=== PATIENT | male | born 1950 | race Asian ===

== ENCOUNTER 2017-08-07 08:09 | Inpatient (IN) | payer OTHER ==
[~2017-08-07] VITALS: Ht 170.2 cm; Wt 69.9 kg
[2017-08-07 08:14] VITALS: BP 129/76
[2017-08-07] MEDS ORDERED: QUET200T PO (08:34)
[2017-08-07] MEDS ORDERED: CLON0.5T PO (08:35)
[2017-08-07] MEDS ORDERED: DILT-135 (08:36)
[2017-08-07] MEDS ORDERED: GABA300C PO (08:37)
[2017-08-07] MEDS ORDERED: SIMV20TA6 PO (08:38)
[2017-08-07] MEDS ORDERED: LURA40TA PO (08:39)
[2017-08-07] MEDS ORDERED: DIPH50CA8 PO (08:42)
[2017-08-07] MEDS ORDERED: METF500T PO (08:43)
[2017-08-07] MEDS ORDERED: ASPIRIN 325 MG TAB PO ONE (08:50)
[2017-08-07 09:01] LABS: ANION GAP 11.4 (8-16); CARBON DIOXIDE 29.7 mmol/L (21-32); POTASSIUM 4.1 mmol/L (3.5-5.1)
[2017-08-07 09:05] LABS: PROTHROMBIN TIME 10.4 secs (10.8-13.4)
[2017-08-07 09:09] LABS: ALBUMIN 3.8 g/dL (3.4-5.0); TOTAL BILIRUBIN 0.3 mg/dL (0.0-1.0)
[2017-08-07] MEDS ORDERED: NACL 0.9% 500 ML IV ONE (09:10)
[2017-08-07] MEDS ORDERED: NACL 0.9% 1,000 ML IV SCH (09:12)
[2017-08-07] MEDS ORDERED: ONDANSETRON 4 MG/2 ML VIAL IVP PRN (09:15)
[2017-08-07] MEDS ORDERED: ACETAMINOPHEN 325 MG TAB PO PRN (09:15)
[2017-08-07] MEDS ORDERED: HYDROcodone/APAP 7.5/325 MG 1 TAB PO PRN (09:15)
[2017-08-07 09:16] LABS: BASOPHILS # (AUTO) 0.4 K/uL (0.00-0.22); BASOPHILS % (AUTO) 4.9 % (0.0-2.0); HEMATOCRIT 44.3 % (36-52); HEMOGLOBIN 14.5 g/dL (12.0-18.0); LYMPHOCYTES # (AUTO) 1.7 K/uL (2.0-11.5); LYMPHOCYTES % (AUTO) 20.8 % (20.5-51.1); MEAN CORPUSCULAR HEMOGLOBIN 31 pg (27-31); MEAN CORPUSCULAR HGB CONC 33 g/dL (33-37); MONOCYTES # (AUTO) 0.6 K/uL (0.8-1.0); MONOCYTES % (AUTO) 6.9 % (1.7-9.3); NEUTROPHILS # (AUTO) 4.4 K/uL (1.8-7.7); NEUTROPHILS % (AUTO) 55.4 % (42.2-75.2); PLATELET COUNT (AUTO) 209 K/uL (140-450); RED BLOOD CELL COUNT(AUTO) 4.72 MIL/uL (4.20-6.10); RED CELL DISTRIBUTION WIDTH 12.6 % (11.6-13.7); WHITE BLOOD COUNT (AUTO) 8.1 K/uL (4.8-10.8)
[2017-08-07 09:40] VITALS: BP 146/72
[2017-08-07 09:44] LABS: CHOL/HDL RATIO 4.2 (1-4.5); MAGNESIUM 2.1 mg/dL (1.8-2.4); PHOSPHORUS 3.6 mg/dL (2.5-4.9)
[2017-08-07] MEDS ORDERED: MECLIZINE 25 MG TAB PO PRN (10:25)
[2017-08-07 11:10] LABS: FREE T4 (FREE THYROXINE) 1.04 ng/dL (0.76-1.46); THYROID STIMULATING HORMONE 2.02 uIU/mL (0.34-3.74)
[2017-08-07 12:00] VITALS: BP 147/81
[2017-08-07 12:03] LABS: APPEARANCE,URINE CLEAR (CLEAR); BILIRUBIN,URINE NEGATIVE (NEGATIVE); BLOOD, URINE NEGATIVE (NEGATIVE); COLOR,URINE YELLOW (YELLOW); LEUKOCYTE ESTERASE ,URINE NEGATIVE (NEGATIVE); NITRITE, URINE NEGATIVE (NEGATIVE); UGLUCOSE NEGATIVE (NEGATIVE)
[2017-08-07] MEDS ORDERED: INSULIN LISPRO SLIDING SCALE 100 UNITS/ML VIAL SUBQ PRN (15:20)
[2017-08-07] MEDS ORDERED: DEXTROSE 50% 50 ML SYR IVP PRN (15:20)
[2017-08-07] MEDS ORDERED: DEXT 5% / NACL 0.45% 1,000 ML IV SCH (15:20)
[2017-08-07] MEDS ORDERED: DILT120C95 PO (15:28)
[2017-08-07] MEDS ORDERED: QUET100T44 PO (15:28)
[2017-08-07] MEDS ORDERED: DOCU-299 PO (15:28)
[2017-08-07] MEDS ORDERED: D50SYR IVP (15:28)
[2017-08-07] MEDS ORDERED: ONDA2SOL45 IVP (15:28)
[2017-08-07] MEDS ORDERED: GLU500 PO (15:28)
[2017-08-07] MEDS ORDERED: ACET-1182 PO (15:28)
[2017-08-07] MEDS ORDERED: ACET-9529 PO (15:28)
[2017-08-07] MEDS ORDERED: GABA-638 PO (15:28)
[2017-08-07] MEDS ORDERED: BEN50 PO (15:28)
[2017-08-07] MEDS ORDERED: HUMSLIDE SUBQ (15:28)
[2017-08-07] MEDS ORDERED: ATOR20TA40 PO (15:28)
[2017-08-07] MEDS ORDERED: CLON0.5T4 PO (15:28)
[2017-08-07] MEDS ORDERED: LURASIDONE HCL PO (15:28)
[2017-08-07] MEDS ORDERED: MECL-272 PO (15:28)
[2017-08-07 16:00] VITALS: BP 142/72
[2017-08-07] MEDS ORDERED: GABAPENTIN 300 MG CAP PO SCH (17:00)
[2017-08-07] MEDS ORDERED: clonazePAM 0.5 MG TAB PO SCH (21:00)
[2017-08-07] MEDS ORDERED: QUEtiapine FUMARATE 100 MG TAB PO SCH (21:00)
[2017-08-07] MEDS ORDERED: SIMVASTATIN 20 MG TAB PO SCH (21:00)
[2017-08-07] MEDS ORDERED: diphenhydrAMINE 50 MG CAP PO SCH (21:00)
[2017-08-07] MEDS ORDERED: DOCUSATE SODIUM 100 MG GELCAP PO SCH (21:00)
[2017-08-07] MEDS ORDERED: NON-FORMULARY ITEM (Lurasidone HCl (Latuda) 20 MG) PO SCH (21:00)
[2017-08-08] MEDS ORDERED: DILTIAZEM 120 MG CAPER PO SCH (09:00)
[2017-08-08] MEDS ORDERED: metFORMIN 500 MG TAB PO SCH (09:00)
[2017-08-08] MEDS ORDERED: ATORVASTATIN 20 MG TAB PO SCH (09:00)
== END 2017-08-07 16:30 | disposition short-term general hospital (02) | DRG 65 ==
LOC: MED 08:09 → MTU 09:10
PROVIDERS: ADMIT Family Medicine; ATTEND Family Medicine
DX: I63.9 Cerebral infarction, unspecified (principal); E87.0 Hyperosmolality and hypernatremia; E11.51 Type 2 diabetes mellitus with diabetic peripheral angiopathy without gangrene; E87.8 Other disorders of electrolyte and fluid balance, not elsewhere classified; R13.10 Dysphagia, unspecified; R29.706 NIHSS score 6; G90.9 Disorder of the autonomic nervous system, unspecified; F17.210 Nicotine dependence, cigarettes, uncomplicated; I10 Essential (primary) hypertension; E78.5 Hyperlipidemia, unspecified; F41.9 Anxiety disorder, unspecified; I65.21 Occlusion and stenosis of right carotid artery; Z86.73 Personal history of transient ischemic attack (TIA), and cerebral infarction without residual deficits
CPT/HCPCS: 36415; 70450; 71045; 80053; 81003; 82140; 82150; 82948; 83036; 83690; 83735; 83880; 84100; 84439; 84443; 84484; 85025; 85610; 85730; 86886; 86900; 86901; 87081; 93005; 93880; 99285; J1815; J7030

== ENCOUNTER 2021-04-01 13:45 | Emergency (ER) | payer OTHER ==
[~2021-04-01] VITALS: Ht 170.2 cm; Wt 69.9 kg
[~2021-04-01 13:45] MED LIST: ACET-1182 PO; ACET-9529 PO; ATOR20TA40 PO; BEN50 PO; CLON0.5T4 PO; D50SYR IVP; DILT120C95 PO; DOCU-299 PO; GABA-638 PO; GLU500 PO; HUMSLIDE SUBQ; LURASIDONE HCL PO; MECL-311 PO; ONDA2SOL45 IVP; QUET100T44 PO
--- NOTE | 2021-04-01 13:46 | NUR ---
BIBA TO ER BED 11
[2021-04-01 13:49] VITALS: BP 146/66
[2021-04-01] MEDS ORDERED: cefTRIAXone 1,000 MG in DEXT 5% MINI-BAG PLUS 50 ML IV ONE (13:50)
--- NOTE | 2021-04-01 13:50 | NUR ---
PATIENT PRESENTS TO ED WITH ALOC. ALS MEDIC STATES 0900 FAMILY STATES PT WAS 'WALKING, TALKING, AND PRAYING LIKE NORMAL." 20 MINUTES PRIOR TO MEDIC ARRIVAL PT BECAME WEAK AND UNRESPONSIVE. SKIN IS PINK/WARM/DRY; PT IS ABLE TO FOLLOW SIMPLE COMMANDS WITH WEAK CHRONIC CONDITION NURSE STRENGTH; EYES ARE TRACKING; RESPONDS TO PAINFUL STIMULI; UNLABORED BREATHING. RECTAL TEMP 95.3. PLACED ON BEAR HUGGER. HX: DM, HTN, PM, CVA (W/ RIGHT SIDED DEFICITES) NKDA MEDS: SEE LIST
--- NOTE | 2021-04-01 13:53 | NUR ---
PT TAKEN TO CT AT THIS TIME PER CODE STROKE PROTOCOL
--- NOTE | 2021-04-01 14:00 | NUR ---
PT RETURNED FROM CT
--- NOTE | 2021-04-01 14:10 | NUR ---
# 16 FR Urinary catheter inserted utilizing sterile technique. Immediate return of 30 ml YELLOW urine noted. Urine sample collected and sent to lab. Pt tolerated procedure.
[2021-04-01 14:17] LABS: BASOPHILS % (AUTO) 0.1 % (0.0-2.0); EOSINOPHILS # (AUTO) 0.1 K/uL (0-0.4); EOSINOPHILS % (AUTO) 0.9 % (0.0-4.0); HEMATOCRIT 36.8 % (36-52); HEMOGLOBIN 12.4 g/dL (12.0-18.0); LYMPHOCYTES # (AUTO) 0.9 K/uL (2.0-11.5); LYMPHOCYTES % (AUTO) 8.6 % (20.5-51.1); MEAN CORPUSCULAR HEMOGLOBIN 32 pg (27-31); MEAN CORPUSCULAR HGB CONC 34 g/dL (33-37); MEAN CORPUSCULAR VOLUME 93.9 fL (80-94); MONOCYTES # (AUTO) 0.5 K/uL (0.8-1.0); MONOCYTES % (AUTO) 4.7 % (1.7-9.3); NEUTROPHILS # (AUTO) 9.1 K/uL (1.8-7.7); NEUTROPHILS % (AUTO) 85.7 % (42.2-75.2); PLATELET COUNT (AUTO) 223 K/uL (140-450); RED BLOOD CELL COUNT(AUTO) 3.92 MIL/uL (4.20-6.10); RED CELL DISTRIBUTION WIDTH 13.1 % (11.6-13.7); WHITE BLOOD COUNT (AUTO) 10.6 K/uL (4.8-10.8)
[2021-04-01 14:27] LABS: PROTHROMBIN TIME 9.5 secs (10.8-13.4)
[2021-04-01 14:28] LABS: ALBUMIN 3.6 g/dL (3.4-5.0); ANION GAP 13.1 (8-16); ASPARTATE AMINOTRANSFERASE 19 U/L (15-37); CARBON DIOXIDE 29.7 mmol/L (21-32); CHLORIDE 102 mmol/L (98-107); CREATININE 1.3 mg/dL (0.6-1.3); GLUCOSE 165 mg/dL (74-106); POTASSIUM 3.8 mmol/L (3.5-5.1); SODIUM SERUM 141 mmol/L (136-145); TOTAL BILIRUBIN 0.3 mg/dL (0.0-1.0); UREA NITROGEN, BLOOD 17 mg/dL (7-18)
[2021-04-01] MEDS ORDERED: cefTRIAXone 1,000 MG VIAL ONE (14:29)
[2021-04-01 14:51] LABS: APPEARANCE,URINE CLEAR (CLEAR); BILIRUBIN,URINE NEGATIVE (NEGATIVE); BLOOD, URINE NEGATIVE (NEGATIVE); COLOR,URINE YELLOW (YELLOW); LEUKOCYTE ESTERASE ,URINE NEGATIVE (NEGATIVE); NITRITE, URINE NEGATIVE (NEGATIVE); UGLUCOSE TRACE (NEGATIVE)
--- NOTE | 2021-04-01 14:53 | NUR ---
PT'S AT BEDSIDE
--- NOTE | 2021-04-01 15:58 | NUR ---
ER MD AT BEDSIDE. PT IS NOW ALERT AND RESPONSIVE AND FOLLOWING COMMANDS. PT STATES HE IS "REALLY TIRED," BUT OTHERWISE FEELS NORMAL. RECTAL TEMP 96.9F
--- NOTE | 2021-04-01 16:25 | NUR ---
CALLED [facility] FOR Patient to be transferred to [facility]. Is being transferred due to HIGHERLEVEL OF CARE. Receiving facility has accepting physician and available space. ER physician has signed transfer form. Patient or responsible republican has agreed to transfer and signed form. Patient belongings inventoried and will be sent with patient. Copy of nursing notes, lab reports, EKG, Physicians Orders and X-rays to be sent with patient. Report called to PERFECTO ASHBY at receiving facility. [facility] ambulance service has been called for transfer. ETA is 5 MINUTES.
[2021-04-01 17:12] VITALS: BP 107/50
--- NOTE | 2021-04-01 17:14 | NUR ---
[facility] AT BEDSIDE
--- NOTE | 2021-04-01 17:21 | NUR ---
[facility] TRANSPORT LEFT AT THIS TIME WITH PT.
== END 2021-04-01 17:14 | disposition short-term general hospital (02) ==
LOC: MED 13:45
DX: T68.XXXA Hypothermia, initial encounter (principal); R41.82 Altered mental status, unspecified; R11.2 Nausea with vomiting, unspecified; R53.1 Weakness; E11.9 Type 2 diabetes mellitus without complications; I10 Essential (primary) hypertension; Z79.4 Long term (current) use of insulin; Z79.899 Other long term (current) drug therapy; Z86.73 Personal history of transient ischemic attack (TIA), and cerebral infarction without residual deficits; Z95.0 Presence of cardiac pacemaker
CPT/HCPCS: 36415; 70450; 71045; 80053; 81003; 83605; 83880; 84484; 85025; 85610; 85730; 87040; 87086; 96365; 99285; J0696; Q0092